=== PATIENT | male | born 1975 | race Caucasian/White ===

== ENCOUNTER 2017-09-17 16:17 | Emergency (ER) | payer SELFPAY ==
[2017-09-17 16:26] VITALS: BP 130/84; PULSE 75; RESP 14; TEMP 36.9; O2SAT 98; BMI 21.5
--- NOTE | 2017-09-17 17:20 | HMH.EDGENADL ---
ED Disposition Clinical Impression: Viral syndrome Vomiting Qualifiers: Vomiting type: unspecified Vomiting Intractability: non-intractable Nausea presence: unspecified Qualified Code(s): R11.10 - Vomiting, unspecified Disposition: Home, Self-Care Condition on Discharge: Good Additional Instructions: 1- rest. 2- drink plenty of gotrade. 3- alternate motrin and tylenol for fever, body aches and hedaches. 4- zofran prn 5- tamiflu. Prescriptions: Ondansetron [Zofran 4mg ODT] 4 mg PO Q6H #6 tab.rapdis Oseltamivir Phosphate [Tamiflu 75mg Capsule] 75 mg PO BID #10 capsule - Critical Care Critical Care Time: No Attestation: On 09/17/17, the high probability of a clinically significant, sudden or life threatening deterioration of the following system(s) required my full and direct attention, intervention and personal management. The time I documented below is in addition to time spent performing reported procedures but includes the following listed in this critical care notation. Medical Decision Making Vital Signs: 09/17/17 16:26 Temperature 98.5 F Temperature Source Oral Pulse Rate [Right Brachial] 75 Respiratory Rate 14 Blood Pressure [Right Arm] 130/84 Blood Pressure Mean [Right Arm] 99 Blood Pressure Source [Right Arm] Automatic Cuff Blood Pressure Position [Right Arm] Sitting 02 Sat by Pulse Oximetry 98 Oxygen Delivery Method Room Air - Lab Data Lab Results 09/17/17 16:40: Influenza Type A Ag Negative, Influenza Type B Ag Negative Orders (Tests/Meds): ED MEDICATIONS Discontinued Medications Generic Name Dose Route Start Last Admin Trade Name Freq PRN Reason Stop Dose Admin Ondansetron HCl 4 mg 09/17/17 16:44 09/17/17 16:47 Zofran 4mg Odt SL 09/17/17 16:45 4 mg ONCE ONE Administration - Dell Inquiry Pt receiving controlled substance: No Dell was queried for this patient: No Medical Decision Making Narrative: I discussed with the patient is his history and physical findings. He declined a head CT scan reporting that his hedache was not much and resolved. He also declined laboratory work and opted for outpatient medical managment in the form of nausea medications and antiviral. his significant other is in the room and seems to agree. General Adult HPI - General Chief complaint: Upper Respiratory Infection Stated complaint: Vomting,weakness Mode of Arrival: Ambulatory Limitations: No Limitations Description of Symptoms (Recalled from ER Triage Doc. by RN): flu like symptoms. c/o body aches, weakness, headache - History of Present Illness HPI narrative: 42 years old white male with no past medical history, he developed a fever blister 2 days ago so he knew that he is fighting some virus. Today at 4:30 in the morning he started having a frontal headache that was releived by pc powder and vomited once. Onset (ago): hour(s) (12 hours) Location: head (frontal relived by pc powder ) Radiation: non-radiation Relieving factors: none, cold therapy Exacerbating factors: none Associated symptoms: nausea/vomiting (vomited once and developed a fever blister on the left lower lip. ) - Related Data Previous Rx's Medication Instructions Recorded Ondansetron [Zofran 4mg ODT] 4 mg PO Q6H #6 tab.rapdis 09/17/17 Oseltamivir Phosphate [Tamiflu 75 mg PO BID #10 cap 09/17/17 75mg Capsule] Allergies Allergy/AdvReac Type Severity Reaction Status Date / Time No Known Allergies Allergy Verified 09/17/17 16:26 [facility] History Medical History: Denies:: Cancer, Diabetes Mellitus Type 1, Diabetes Mellitus Type 2, MRSA Other Surgeries: Yes: Other (He did have back surgery in 1998) Amputation: No - *Social History Smoking Status: Current every day smoker Alcohol Intake: never - Psychiatric History Expresses thoughts of harming self/others: None Suicide Plan Description: No Plan ROS Obtained: Yes All systems reviewed & no additi
--- NOTE | 2017-09-17 17:25 | ED_ITS ---
ED Disposition Clinical Impression: Viral syndrome Vomiting Qualifiers: Vomiting type: unspecified Vomiting Intractability: non-intractable Nausea presence: unspecified Qualified Code(s): R11.10 - Vomiting, unspecified Disposition: Home, Self-Care Condition on Discharge: Good Additional Instructions: 1- rest. 2- drink plenty of gotrade. 3- alternate motrin and tylenol for fever, body aches and hedaches. 4- zofran prn 5- tamiflu. Prescriptions: Ondansetron [Zofran 4mg ODT] 4 mg PO Q6H #6 tab.rapdis Oseltamivir Phosphate [Tamiflu 75mg Capsule] 75 mg PO BID #10 capsule - Critical Care Critical Care Time: No Attestation: On 09/17/17, the high probability of a clinically significant, sudden or life threatening deterioration of the following system(s) required my full and direct attention, intervention and personal management. The time I documented below is in addition to time spent performing reported procedures but includes the following listed in this critical care notation. Medical Decision Making Vital Signs: 09/17/17 16:26 Temperature 98.5 F Temperature Source Oral Pulse Rate [Right Brachial] 75 Respiratory Rate 14 Blood Pressure [Right Arm] 130/84 Blood Pressure Mean [Right Arm] 99 Blood Pressure Source [Right Arm] Automatic Cuff Blood Pressure Position [Right Arm] Sitting 02 Sat by Pulse Oximetry 98 Oxygen Delivery Method Room Air - Lab Data Lab Results 09/17/17 16:40: Influenza Type A Ag Negative, Influenza Type B Ag Negative Orders (Tests/Meds): ED MEDICATIONS Discontinued Medications Generic Name Dose Route Start Last Admin Trade Name Freq PRN Reason Stop Dose Admin Ondansetron HCl 4 mg 09/17/17 16:44 09/17/17 16:47 Zofran 4mg Odt SL 09/17/17 16:45 4 mg ONCE ONE Administration - Dell Inquiry Pt receiving controlled substance: No Dell was queried for this patient: No Medical Decision Making Narrative: I discussed with the patient is his history and physical findings. He declined a head CT scan reporting that his hedache was not much and resolved. He also declined laboratory work and opted for outpatient medical managment in the form of nausea medications and antiviral. his significant other is in the room and seems to agree. General Adult HPI - General Chief complaint: Upper Respiratory Infection Stated complaint: Vomting,weakness Mode of Arrival: Ambulatory Limitations: No Limitations Description of Symptoms (Recalled from ER Triage Doc. by RN): flu like symptoms. c/o body aches, weakness, headache - History of Present Illness HPI narrative: 42 years old white male with no past medical history, he developed a fever blister 2 days ago so he knew that he is fighting some virus. Today at 4:30 in the morning he started having a frontal headache that was releived by pc powder and vomited once. Onset (ago): hour(s) (12 hours) Location: head (frontal relived by pc powder ) Radiation: non-radiation Relieving factors: none, cold therapy Exacerbating factors: none Associated symptoms: nausea/vomiting (vomited once and developed a fever blister on the left lower lip. ) - Related Data Previous Rx's Medication Instructions Recorded Ondansetron [Zofran 4mg ODT] 4 mg PO Q6H #6 tab.liliana 09/17/17
[2017-09-17 17:46] VITALS: BP 132/60; PULSE 85; RESP 14; TEMP 36.9; O2SAT 98
== END 2017-09-17 17:49 | disposition home or self-care (01) ==
PROVIDERS: Emergency Provider Emergency Medicine
DX: A08.4 Viral intestinal infection, unspecified (principal); J06.9 Acute upper respiratory infection, unspecified
CPT/HCPCS: 87275; 87276; 99283

== ENCOUNTER 2020-03-04 21:37 | Emergency (ER) | payer MEDICAID, SELFPAY ==
[2020-03-04 21:46] VITALS: BP 134/93; PULSE 80; RESP 14; TEMP 36.6; O2SAT 99; BMI 23.5
--- NOTE | 2020-03-04 22:06 | HMH.EDWNDL ---
ED Disposition Clinical Impression: Laceration Disposition: Home, Self-Care Condition on Discharge: Good Instructions: DI for Laceration Repair Additional Instructions: sutures out 10-12 days and recheck if needed Prescriptions: cephALEXin [Keflex 500mg Cap] 500 mg PO TID #30 cap Transmission Status: Pending to [facility] Referrals: Sukumar Raya MD [Primary Care Provider] - - Critical Care Critical Care Time: No Attestation: On , the high probability of a clinically significant, sudden or life threatening deterioration of the following system(s) required my full and direct attention, intervention and personal management. The time I documented below is in addition to time spent performing reported procedures but includes the following listed in this critical care notation. Medical Decision Making - Medical Records Medical records reviewed: Yes: I reviewed the patient's medical records. - Dell Inquiry Pt receiving controlled substance: No Vital Signs: 03/04/20 21:46 Temperature 97.9 F Temperature Source Oral Pulse Rate [Right Brachial] 80 Respiratory Rate 14 Blood Pressure [Right Arm] 134/93 H Blood Pressure Mean [Right Arm] 106 Blood Pressure Source [Right Arm] Automatic Cuff Blood Pressure Position [Right Arm] Sitting 02 Sat by Pulse Oximetry 99 Oxygen Delivery Method Room Air Orders (Tests/Meds): ED MEDICATIONS Discontinued Medications Generic Name Dose Route Start Last Admin Trade Name Freq PRN Reason Stop Dose Admin Tetanus/Reduced Diphtheria/Acell Pertussis 0.5 ml 03/04/20 21:54 03/04/20 21:59 Adacel Tdap 0.5ml Syringe IM 03/04/20 21:55 0.5 ml .ONCE ONE Administration Wound/Laceration HPI - General Chief Complaint: Wound/Laceration Stated Complaint: AO 0619 2100 lac Lfoot 2nd toe Time Seen by Provider: 03/04/20 22:00 Mode of Arrival: Wheelchair Source of Information: Patient, Medical Record Limitations: No Limitations Description of Symptoms (Recalled from ER Triage Doc. by RN): Patient reports he was fishing and walking across some wet rocks when he slipped and cut his long toe on his left foot. - History of Present Illness HPI narrative: slipped with lac to lt foot second toe Onset (ago): hour(s) Extremity Location: Left: foot Place: outdoors Patient tetanus UTD: No Context: accidental Associated symptoms: none - Related Data Home Medications Medication Instructions Recorded Confirmed buprenorphine 8 mg-naloxone 2 mg SUBLINGUAL 10/26/19 10/26/19 sublingual tablet Previous Rx's Medication Instructions Recorded gabapentin 100 mg capsule 100 mg PO TID #90 cap 10/26/19 cephALEXin [Keflex 500mg Cap] 500 mg PO TID #30 cap 03/04/20 Allergies Allergy/AdvReac Type Severity Reaction Status Date / Time No Known Allergies Allergy Verified 10/26/19 10:36 [facility] History - Hepatitis A Screen Drug use history?: No High risk sexual behaviors?: No History of sexually transmitted infection?: No Currently employed?: No Childcare worker?: No Do you have indoor plumbing?: Yes Do you have electricity?: Yes Attestation statement:: This patient has been screened for Hepatitis A risk factors. I have reviewed the patient's past medical history: Yes Medical History: Denies:: Cancer, Diabetes Mellitus Type 1, Diabetes Mellitus Type 2, MRSA Other Surgeries: Yes: Other (1999-lumbar surgery) Amputation: No Fractures: No - Social History Smoking Status: Current every day smoker Tobacco Type: cigarettes # Packs/Day (cigarettes): 1 Alcohol Intake: never Substance Use Type: former substance user, opiates Occupational Status: employed Housing: house Household Members: family Family Hx:: Cancer ROS Obtained: Yes All systems reviewed & no additional complaints - Constitutional Constitutional: Denies fever(s) - Eyes Eyes: Denies change in vision - ENT Ears, Nose, Mouth, and Throat: Denies sore throat - Cardiovascular
[2020-03-04 22:33] VITALS: BP 127/82; PULSE 82; RESP 14; TEMP 36.6; O2SAT 99
== END 2020-03-04 22:36 | disposition home or self-care (01) ==
PROVIDERS: Emergency Provider Emergency Medicine; PCP Emergency Medicine
DX: S91.115A Laceration without foreign body of left lesser toe(s) without damage to nail, initial encounter (principal); W01.198A Fall on same level from slipping, tripping and stumbling with subsequent striking against other object, initial encounter; Y92.89 Other specified places as the place of occurrence of the external cause; F17.210 Nicotine dependence, cigarettes, uncomplicated; Z23 Encounter for immunization
CPT/HCPCS: 12001; 90471; 90715; 96372; 99282